=== PATIENT | female | born 1975 | race Caucasian/White ===

== ENCOUNTER → 2016-10-14 | Outpatient (CLI) | payer BC ==
[~2016-10-14] MED LIST: ACET-749 PO; ALPR0.25 PO; CALCTAB5 PO; CYAN3INJ IM; LEVO112T4 PO; PEDICHW50 PO; RIZA10TA18 PO; ZOLP10TA6 PO
--- NOTE | 2016-10-15 12:58 | MAMMOGRAPHY REPORT ---
BILATERAL DIGITAL SCREENING MAMMOGRAM TOMOSYNTHESIS WITH CAD: 10/14/2016 CLINICAL HISTORY: Routine screening. Patient has no complaints. TECHNIQUE: Breast tomosynthesis in addition to standard 2D mammography was performed. Current study was also evaluated with a Computer Aided Detection (CAD) system. COMPARISON: Comparison is made to exam dated: 10/12/2015 mammogram - [facility]. BREAST COMPOSITION: The tissue of both breasts is almost entirely fatty. FINDINGS: There is a focal asymmetry in the upper outer middle one third of the right breast with p ossible associated architectural distortion. Additional spot compression tomosynthesis views and po ssibly ultrasound are recommended. There is a second asymmetry in the anterior subareolar right edy ast, only seen on the CC view, warranting additional spot compression tomosynthesis views and possib ly ultrasound. No other suspicious mass, architectural distortion or cluster of microcalcifications is seen bilater ally. IMPRESSION: ACR BI-RADS CATEGORY 0: INCOMPLETE EVALUATION: NEED ADDITIONAL IMAGING EVALUATION The asymmetries within the right breast need additional imaging evaluation. The patient will be called to schedule an appointment. Approximately 10% of breast cancers are not detected with mammography. A negative mammographic repor t should not delay biopsy if a clinically suggestive mass is present. Nena Bobo M.D. ay/:10/14/2016 16:39:21 Wallpaper Printer Helper: Vicki BRADSHAW(Gaurang)(M), [facility] letter sent: Addl Imaging 0 BI-RADS Code: ACR BI-RADS Category 0: Incomplete Evaluation: Need Additional Imaging Evaluation
== END | disposition home or self-care (01) ==
LOC: C.MAMM 10:09
PROVIDERS: ATTEND Obstetrics & Gynecology
DX: Z12.31 Encounter for screening mammogram for malignant neoplasm of breast (principal); R92.8 Other abnormal and inconclusive findings on diagnostic imaging of breast

== ENCOUNTER → 2016-10-22 | Outpatient (CLI) | payer BC ==
--- NOTE | 2016-10-22 14:11 | MAMMOGRAPHY REPORT ---
UNILATERAL RIGHT DIGITAL DIAGNOSTIC MAMMOGRAM TOMOSYNTHESIS AND TARGETED RIGHT ULTRASOUND: 10/22/2016 CLINICAL HISTORY: Callback from screening mammogram for right breast asymmetries. TECHNIQUE: Breast tomosynthesis in addition to standard 2D mammography was performed. Spot mary lakes[place]ia right CC and MLO 2-D and tomosynthesis images were obtained. COMPARISON: Comparison is made to exams dated: 10/14/2016 mammogram and 10/12/2015 mammogram - [facility]. BREAST COMPOSITION: The tissue of the right breast is almost entirely fatty. FINDINGS: The previously described focal asymmetry in the right upper outer quadrant has the appear ance of normal fibroglandular tissue on the additional views, without a suspicious mass or edi architect ural distortion noted. The asymmetry appears stable to the 2016 exam on the additional views. The other asymmetry seen within the right anterior breast on the cc view is also stable compared to the 2016 exam and has the appearance of normal fibroglandular tissue on the tomosynthesis images. Targeted ultrasound was performed of the right upper outer quadrant in the region of the mammographi c focal asymmetry, which shows sonographically normal tissue without evidence of a mass or other natacha picious sonographic abnormality. IMPRESSION: ACR BI-RADS CATEGORY 2: BENIGN, TARGETED ULTRASOUND ACR BI-RADS CATEGORY 2: BENIGN The right breast asymmetries efface to a baseline appearance on the additional views, without suspic ious sonographic abnormality evident. The asymmetries are benign and compatible with normal fibrogl andular tissue. There is no mammographic or targeted sonographic evidence of malignancy. A 1 year s creening mammogram is recommended. The patient has been verbally notified of the results. Approximately 10% of breast cancers are not detected with mammography. A negative mammographic repor t should not delay biopsy if a clinically suggestive mass is present. Angi De Anda M.D. /:10/22/2016 13:12:41 Egg Separator: Augusta SMALLWOOD)(Adolfo), [facility] letter sent: Normal 1/2 BI-RADS Code: ACR BI-RADS Category 2: Benign Ultrasound BI-RADS: ACR BI-RADS Category 2: Benign
== END | disposition home or self-care (01) ==
LOC: C.MAMM 12:47
PROVIDERS: ATTEND Obstetrics & Gynecology
DX: N64.89 Other specified disorders of breast (principal)

== ENCOUNTER 2021-09-26 22:22 | Inpatient (IN) ==
[2021-09-26] MEDS ORDERED: MoRPHine SULFATE 4 MG/ML 1 ML CARP\\VIAL IV STA (23:17)
[2021-09-26] MEDS ORDERED: ONDANSETRON INJ 2 MG/ML 2 ML VIAL IV STA (23:17)
[2021-09-26] MEDS ORDERED: SODIUM CHLORIDE 0.9% 1000ML 1,000 ML IV STA (23:17)
[2021-09-26 23:30] LABS: Basophils # (auto) 0.02 K/uL (0-0.2); Basophils % (auto) 0.1 %; Eosinophils # (auto) 0.03 K/uL (0-0.5); Eosinophils % (auto) 0.2 %; Hematocrit (blood only) 42.1 % (37-47); Hemoglobin 14.3 g/dL (12.0-16.0); Immature Granulocytes # (auto) 0.07 K/uL (0.00-0.02); Immature Granulocytes % (auto) 0.4 %; Lymphocytes # (auto) 0.99 K/uL (1.2-3.4); Lymphocytes % (auto) 5.5 %; Mean Corpuscular Volume 88.3 fL (80-100); Mean Platelet Volume 10.5 fL (7.4-10.4); Monocytes # (auto) 1.01 K/uL (0.11-0.59); Monocytes % (auto) 5.6 %; Neutrophils # (auto) 15.84 K/uL (1.4-6.5); Neutrophils % (auto) 88.2 %; Platelet Count 235 K/uL (130-400); RDW Coefficient of Variation 13.4 % (11.5-14.5); RDW Standard Deviation 43.7 fL (36.4-46.3); Red Blood Count 4.77 M/uL (4.2-5.4); White Blood Count 17.96 K/uL (4.8-10.8)
[2021-09-26 23:38] LABS: Albumin Globulin Ratio 1.4 (0.9-2); BUN Creatinine Ratio 17.1 (10-20); Bilirubin,Total 0.9 mg/dl (0.2-1.0); Calcium 8.8 mg/dl (8.5-10.1); Creatinine Clr Calc Pharmacy 87.6 ml/min; Est GFR (African American) 108.3 ml/min; Est GFR (Non-African American) 93.4 ml/min; Globulin 2.9 gm/dl (2.5-4.0); Total Protein 6.9 gm/dl (6.0-8.3)
[2021-09-26 23:54] LABS: Pregnancy Test, Serum Negative (Negative)
--- NOTE | 2021-09-26 23:58 | Emergency Department Note ---
History of Present Illness General Chief complaint: Fever Stated complaint: FEVER, HEADACHE, DIARRHEA, LUQ ABDOMINAL PAIN Time Seen by Provider: 09/26/21 23:02 History of Present Illness Maximum Pain Intensity: 8 This 46-year-old female patient presents to the emergency department today for evaluation of fever, headache, diarrhea, and generalized abdominal pain which feels similar nature to small bowel obstruction and diverticulitis she has experienced in the past. Patient states she has been experiencing intermittent pain for about a week and a half. She developed the fever and other symptoms earlier this evening. She states she has had several episodes of diarrhea since arrival in the emergency department. She does have a history of gastric bypass surgery and cholecystectomy. Patient took ibuprofen for her pain without relief. She has not taken any antidiarrheals or antiemetics. She rates her pain 8/10 and describes it as crampy and sharp. Home Medications Medication Instructions Recorded Confirmed Type Rizatriptan Benzoate (Maxalt) 10 mg PO PRN #0 03/08/07 History ALPRAZOLAM (XANAX) 0.25 mg PO HS PRN #0 tab 05/07/14 History Calcium (Caltrate) 600 mg PO BID #0 05/07/14 History Cyanocobalamin (Vitamin B-12 Inj) 1,000 mg IM Q3M #0 05/07/14 History PEDIATRIC MULTIPLE VITAMIN W/ 1 tab PO BID #0 tab 05/07/14 History (FLINTSTONES CHEWABLE) Acetaminophen/Codeine (Tylenol 1 tab PO 1 TIME #0 02/12/16 History W/Codeine #3) LEVOTHYROXINE SODIUM 1 tab PO DAILY #0 02/12/16 History ZOLPIDEM TARTRATE 0.5 tab PO BID PRN #0 02/12/16 History ondansetron 4 mg disintegrating 4 mg PO Q6H PRN #20 tab 01/06/20 Rx tablet Allergies Allergy/AdvReac Type Severity Reaction Status Date / Time sumatriptan Allergy Intermediate BODY PAIN Unverified 02/12/16 12:27 iodine Allergy Unknown Unverified 02/12/16 12:25 Penicillins Allergy Unknown Verified 02/12/16 12:25 shellfish derived Allergy Unknown UNKNOWN Verified 02/12/16 12:25 Sulfa (Sulfonamide Allergy Unknown Unverified 02/12/16 12:25 Antibiotics) Past Med/Surg History Medical History (Updated 09/27/21 @ 05:51 by Kevin Amaro MD) No significant past medical history Surgical History (Updated 01/21/20 @ 00:03 by Suzi Scott) H/O gastric bypass History of cholecystectomy Social History Smoking Status: Never smoker Preferred Language: Indonesian marital status: Current Living Situation: Spouse current occupational status: employed Feels Safe at Home: Yes Review of Systems A total of 10 systems reviewed and were otherwise negative Physical Exam Vital Signs Vital Signs - 24 hr 09/26/21 22:26 09/26/21 22:48 09/26/21 22:50 Temperature 36.6 C Temperature Source Temporal Artery Scan Pulse Rate 151 H 127 H 133 H Pulse Rate [Apical] Respiratory Rate 18 21 20 Respiratory Effort / Characteristics Non-Labored Spontaneous Respiratory Depth Normal Respiratory Pattern Regular Blood Pressure 138/79 Blood Pressure [Left Arm] Blood Pressure Mean 98 Blood Pressure Mean [Left Arm] Blood Pressure Position Sitting Pulse Oximetry 95 Oxygen Delivery Method Room Air Sepsis Recent Fever Within 48 Hours No Sepsis New/Unexplained Change in Mental Status No Sepsis Action Taken by Nursing No Action Required 09/26/21 23:00 09/26/21 23:10 09/26/21 23:20 Temperature Temperature Source Pulse Rate 132 H 132 H 131 H Pulse Rate [Apical] Respiratory Rate 20 19 20 Respiratory Effort / Characteristics Respiratory Depth Respiratory Pattern Blood Pressure 127/86 Blood Pressure [Left Arm] Blood Pressure Mean 99 Blood Pressure Mean [Left Arm] Blood Pressure Position Pulse Oximetry 98 Oxygen Delivery Method Sepsis Recent Fever Within 48 Hours Sepsis New/Unexplained Change in Mental Status Sepsis Action Taken by Nursing 09/26/21 23:31 09/26/21 23:40 09/26/21 23:45 Temperature Temperature Source Pulse Rate 150 H 113 H 112 H Pulse Rate [Apical] Respiratory Rate 22 18 20 Respiratory Effort / Characteristics Respiratory Depth Respiratory Pattern Blood Pressure 124/86 Blood Pressure [Left Arm] Blood Pressure Mean 98 Blood Pressure Mean [Left Arm] Blood Pressure Position Pulse Oximetry 96 Oxygen Delivery Method Sepsis Recent Fever Within 48 Hours Sepsis New/Unexplained Change in Mental Status Sepsis Action Taken by Nursing 09/26/21 23:50 09/27/21 00:53 09/27/21 01:00 Temperature Temperature Source Pulse Rate 117 H 99 H 96 H Pulse Rate [Apical] Respiratory Rate 20 18 17 Respiratory Effort / Characteristics Respiratory Depth Respiratory Pattern Blood Pressure 128/77 Blood Pressure [Left Arm] Blood Pressure Mean 94 Blood Pressure Mean [Left Arm] Blood Pressure Position Pulse Oximetry Oxygen Delivery Method Sepsis Recent Fever Within 48 Hours Sepsis New/Unexplained Change in Mental Status Sepsis Action Taken by Nursing 09/27/21 01:10 09/27/21 01:20 09/27/21 01:30 Temperature Temperature Source Pulse Rate 102 H 98 H 110 H Pulse Rate [Apical] Respiratory Rate 20 20 21 Respiratory Effort / Characteristics Respiratory Depth Respiratory Pattern Blood Pressure Blood Pressure [Left Arm] Blood Pressure Mean Blood Pressure Mean [Left Arm] Blood Pressure Position Pulse Oximetry 98 96 Oxygen Delivery Method Sepsis Recent Fever Within 48 Hours Sepsis New/Unexplained Change in Mental Status Sepsis Action Taken by Nursing 09/27/21 01:40 09/27/21 01:50 09/27/21 02:00 Temperature Temperature Source Pulse Rate 98 H 108 H 104 H Pulse Rate [Apical] Respiratory Rate 16 18 20 Respiratory Effort / Characteristics Respiratory Depth Respiratory Pattern Blood Pressure 107/63 Blood Pressure [Left Arm] Blood Pressure Mean 77 Blood Pressure Mean [Left Arm] Blood Pressure Position Pulse Oximetry 99 Oxygen Delivery Method Sepsis Recent Fever Within 48 Hours Sepsis New/Unexplained Change in Mental Status Sepsis Action Taken by Nursing 09/27/21 02:10 09/27/21 02:39 09/27/21 02:40 Temperature Temperature Source Pulse Rate 114 H 94 H 94 H Pulse Rate [Apical] Respiratory Rate 17 17 21 Respiratory Effort / Characteristics Respiratory Depth Respiratory Pattern Blood Pressure Blood Pressure [Left Arm] Blood Pressure Mean Blood Pressure Mean [Left Arm] Blood Pressure Position Pulse Oximetry Oxygen Delivery Method Sepsis Recent Fever Within 48 Hours Sepsis New/Unexplained Change in Mental Status Sepsis Action Taken by Nursing 09/27/21 02:50 09/27/21 03:18 09/27/21 05:00 Temperature Temperature Source Pulse Rate 97 H Pulse Rate [Apical] 96 H 84 Respiratory Rate 18 18 18 Respiratory Effort / Characteristics Non-Labored Spontaneous Non-Labored Spontaneous Respiratory Depth Normal Normal Respiratory Pattern Blood Pressure Blood Pressure [Left Arm] 113/98 120/95 Blood Pressure Mean Blood Pressure Mean [Left Arm] 103 103 Blood Pressure Position Pulse Oximetry 100 97 Oxygen Delivery Method Room Air Room Air Sepsis Recent Fever Within 48 Hours Sepsis New/Unexplained Change in Mental Status Sepsis Action Taken by Nursing VITALS: Vitals are noted on the nurse's note and reviewed by myself. Vital signs stable. GENERAL: This is a 46-year-old white female, in no acute distress, nondiaphoretic, well-developed well-nourished. SKIN: The skin was without rashes, erythema, edema, or bruising. There is no tenting of the skin. Capillary refill less than 2 seconds. HEAD: Normocephalic atraumatic. EYES: Conjunctivae without injection, sclerae without icterus. NECK: Supple without nuchal rigidity. No lymphadenopathy. No JVD. HEART: Regular rate and rhythm without murmurs gallops or rubs. LUNGS: Clear to auscultation bilaterally without wheezes, rales or rhonchi. No retractions or accessory muscle use. ABDOMEN: Positive bowel sounds x 4. Diffuse tenderness throughout the abdomen. Abdomen was otherwise soft, without masses or organomegaly. Flynn sign negative. No guarding or rebound tenderness. No CVA tenderness bilaterally. MUSCULOSKELETAL: No muscle atrophy, erythema, or edema noted. Full range of motion without joint tenderness in all extremities. No tenderness to palpation. Normal gait. Strength 5/5 throughout. NEURO: Patient was alert and oriented to person place and time. No focal neurological deficits. Course Course The patient was seen and evaluated as above. An order was placed for continuous cardiac monitoring. The monitor shows a sinus tachycardia rhythm at a rate of 120 bpm. IV access obtained, labs drawn. Patient hydrated IV fluids and medicated with morphine and Zofran. Imaging performed and reviewed by myself and radiologist as noted. Labs reviewed by myself. Patient medicated with additional dose of morphine. I discussed the findings with the patient at bedside. Patient continues to complain of pain. She is requesting Gas-X. I recommended admission due to the patient's complaints of pain, the patient was hesitant, noting she would like to see if the Gas-X helps first. She will provide a stool sample when able. Patient was medicated with p.o. simethicone. Patient is now requesting Tylenol. This was provided. Patient is now complaining of hives developing behind her ears and on her left eyelid. Medicated with p.o. Benadryl. She is continuing to complain of severe abdominal pain. She was agreeable to admission at this time. I discussed the case with Dr. Amaro, [facility] hospitalist physician. He did agree to see and evaluate the patient for admission. Please see hospitalist dictation regarding ongoing management and care of this patient. Administered Medications Lactated Ringer's (Lr) 1,000 mls @ 80 mls/hr IV .[id number] STA Stop: 09/27/21 17:02 Last Admin: 09/27/21 05:23 Dose: 80 mls/hr Documented by: [id number] Discontinued Medications Diphenhydramine HCl (Diphenhydramine 50 Mg/Ml Vial) 50 mg IV NOW STA Stop: 09/27/21 03:48 Last Admin: 09/27/21 03:53 Dose: 50 mg Documented by: [id number] Sodium Chloride (Nss 1000ml) 1,000 mls @ 999 mls/hr IV .[id number] STA Stop: 09/27/21 00:17 Last Infusion: 09/27/21 00:49 Dose: 0 mls/hr Documented by: [id number] Admin: 09/26/21 23:38 Dose: 999 mls/hr Documented by: [id number] Acetaminophen (Ofirmev) 1,000 mg in 100 mls @ 400 mls/hr IV NOW STA Stop: 09/27/21 03:10 Last Infusion: 09/27/21 03:38 Dose: 0 mls/hr Documented by: [id number] Admin: 09/27/21 03:16 Dose: 400 mls/hr Documented by: [id number] Morphine Sulfate (Morphine Sulfate 4 Mg/Ml 1 Ml Carp\Vial) 4 mg IV NOW STA Stop: 09/26/21 23:18 Last Admin: 09/26/21 23:37 Dose: 4 mg Documented by: [id number] Morphine Sulfate (Morphine Sulfate 4 Mg/Ml 1 Ml Carp\Vial) 4 mg IV NOW STA Stop: 09/27/21 00:51 Last Admin: 09/27/21 01:00 Dose: 4 mg Documented by: [id number] Ondansetron HCl (Ondansetron Inj 2 Mg/Ml 2 Ml Vial) 4 mg IV NOW STA Stop: 09/26/21 23:18 Last Admin: 09/26/21 23:37 Dose: 4 mg Documented by: [id number] Simethicone (Simethicone 80 Mg Chew) 80 mg PO NOW STA Stop: 09/27/21 01:59 Last Admin: 09/27/21 02:35 Dose: 80 mg Documented by: [id number] Medical Decision Making Differential Diagnosis Etiologies such as appendicitis, diverticulitis, obstruction, inflammatory bowel disease, renal colic, PUD, biliary pathology, pancreatitis, mesenteric ischemia, aortic pathology, infections, genitourinary, UTI, perforated viscus, as well as others were entertained. Medical Records Attestation: I reviewed the patient's medical records. Home Medications Current Medication List: was personally reviewed by me Laboratory Data Attestation: I reviewed the patient's lab results. Leukocytosis of 17,000. No anemia or thrombocytopenia. Renal, hepatic function and electrolytes without significant abnormality, however the patient was noted to be hypokalemic with a potassium of 3.0. hCG negative. Magnesium 1.6. Procalcitonin negative. Lipase 11. Lactic acid 0.6. TSH 3.243. Influenza, COVID-19, RSV testing negative. Stool PCR was positive for Campylobacter Result diagrams: 09/26/21 22:52 09/26/21 22:52 Lab Results 09/26/21 09/26/21 09/26/21 Range/Units 22:52 22:52 22:52 WBC 17.96 H (4.8-10.8) K/uL RBC 4.77 (4.2-5.4) M/uL Hgb 14.3 (12.0-16.0) g/dL Hct 42.1 (37-47) % MCV 88.3 (80-100) fL MCH 30.0 (25-34) pg MCHC 34.0 (32-36) g/dL RDW Std Deviation 43.7 (36.4-46.3) fL RDW Coeff of Frank 13.4 (11.5-14.5) % Plt Count 235 (130-400) K/uL MPV 10.5 H (7.4-10.4) fL Immature Gran % (Auto) 0.4 % Neut % (Auto) 88.2 % Lymph % (Auto) 5.5 % [place] % (Auto) 5.6 % Eos % (Auto) 0.2 % Baso % (Auto) 0.1 % Neut # (Auto) 15.84 H (1.4-6.5) K/uL Lymph # (Auto) 0.99 L (1.2-3.4) K/uL [place] # (Auto) 1.01 H (0.11-0.59) K/uL Eos # (Auto) 0.03 (0-0.5) K/uL Baso # (Auto) 0.02 (0-0.2) K/uL Immature Gran # (Auto) 0.07 H (0.00-0.02) K/uL Sodium 137 (136-145) mmol/L Potassium 3.0 L (3.5-5.1) mmol/L Chloride 105 (98-107) mmol/L Carbon Dioxide 23 (21-32) mmol/L Anion Gap 9 (3-11) BUN 13 (6-23) mg/dl Creatinine 0.76 (0.6-1.2) mg/dl Est Cr Clr Drug Dosing 87.6 ml/min Est GFR ( Amer) 108.3 ml/min Est GFR (Non-Af Amer) 93.4 ml/min BUN/Creatinine Ratio 17.1 (10-20) Glucose 107 H (70-99(Fasting)) mg/dl Lactate (0.4-2.0) mmol/L Calcium 8.8 (8.5-10.1) mg/dl Magnesium (1.7-2.4) mg/dl Total Bilirubin 0.9 (0.2-1.0) mg/dl AST 15 (13-39) U/L ALT 12 (7-52) U/L Alkaline Phosphatase 122 H (34-104) U/L Total Protein 6.9 (6.0-8.3) gm/dl Albumin 4.0 (3.4-5.0) gm/dl Globulin 2.9 (2.5-4.0) gm/dl Albumin/Globulin Ratio 1.4 (0.9-2) Lipase 11 (11-82) U/L Procalcitonin (0-0.5) ng/ml TSH (0.300-4.500) uIu/ml HCG, Qual Negative (Negative) Urine Color Urine Appearance (Clear) Urine pH (4.5-7.5) Ur Specific [place] (1.000-1.030) Urine Protein (Negative) Urine Glucose (UA) (Negative) Urine Ketones (Negative) Urine Blood (Negative) Urine Nitrite (Negative) Urine Bilirubin (Negative) Urine Urobilinogen (Negative) Ur Leukocyte Esterase (Negative) Urine WBC (Auto) (0-5) /hpf Urine RBC (Auto) (0-4) /hpf U Hyaline Cast (Auto) (0-5) /lpf U Epithel Cells (Auto) (0-5) /lpf Urine Bacteria (Auto) (Negative) Stl C. cayetanensis PCR (NotDetected) Stool Rotavirus A PCR (NotDetected) Stl Adenov F 40/41 PCR (NotDetected) Stool Astrovirus (PCR) (NotDetected) Stool Campylobacter PCR (NotDetected) Stl C. diff Tox A/B PCR (NotDetected) Stool Cryptosporidium PCR (NotDetected) Stl E.coli Shiga Tox PCR (NotDetected) Stl Enterotoxigenic E PCR (NotDetected) Stool EPEC (PCR) (NotDetected) Stool EAEC (PCR) (NotDetected) Stl E. histolytica PCR (NotDetected) Stool Giardia Lamblia PCR (NotDetected) Stool Salmonella PCR (NotDetected) Stool Sapovirus (PCR) (NotDetected) Stl P. shigelloides PCR (NotDetected) Stl Shigella/EIEC PCR (NotDetected) St Y.enterocolitica PCR (NotDetected) Stool Vibrio (PCR) (NotDetected) Stl Vibrio cholerae PCR (NotDetected) Stl Norovirus GI/GII PCR (NotDetected) SARS-CoV-2 (PCR) (Negative) Influenza Type A (PCR) (Neg) Influenza Type B (PCR) (Neg) RSV (RT-PCR) (Neg) 09/26/21 09/26/21 09/26/21 Range/Units 22:52 22:52 22:52 WBC (4.8-10.8) K/uL RBC (4.2-5.4) M/uL Hgb (12.0-16.0) g/dL Hct (37-47) % MCV (80-100) fL MCH (25-34) pg MCHC (32-36) g/dL RDW Std Deviation (36.4-46.3) fL RDW Coeff of Frank (11.5-14.5) % Plt Count (130-400) K/uL MPV (7.4-10.4) fL Immature Gran % (Auto) % Neut % (Auto) % Lymph % (Auto) % [place] % (Auto) % Eos % (Auto) % Baso % (Auto) % Neut # (Auto) (1.4-6.5) K/uL Lymph # (Auto) (1.2-3.4) K/uL [place] # (Auto) (0.11-0.59) K/uL Eos # (Auto) (0-0.5) K/uL Baso # (Auto) (0-0.2) K/uL Immature Gran # (Auto) (0.00-0.02) K/uL Sodium (136-145) mmol/L Potassium (3.5-5.1) mmol/L Chloride (98-107) mmol/L Carbon Dioxide (21-32) mmol/L Anion Gap (3-11) BUN (6-23) mg/dl Creatinine (0.6-1.2) mg/dl Est Cr Clr Drug Dosing ml/min Est GFR ( Amer) ml/min Est GFR (Non-Af Amer) ml/min BUN/Creatinine Ratio (10-20) Glucose (70-99(Fasting)) mg/dl Lactate (0.4-2.0) mmol/L Calcium (8.5-10.1) mg/dl Magnesium 1.6 L (1.7-2.4) mg/dl Total Bilirubin (0.2-1.0) mg/dl AST (13-39) U/L ALT (7-52) U/L Alkaline Phosphatase (34-104) U/L Total Protein (6.0-8.3) gm/dl Albumin (3.4-5.0) gm/dl Globulin (2.5-4.0) gm/dl Albumin/Globulin Ratio (0.9-2) Lipase (11-82) U/L Procalcitonin < 0.05 (0-0.5) ng/ml TSH (0.300-4.500) uIu/ml HCG, Qual (Negative) Urine Color Yellow Urine Appearance Clear (Clear) Urine pH 7.5 (4.5-7.5) Ur Specific [place] 1.011 (1.000-1.030) Urine Protein Negative (Negative) Urine Glucose (UA) Negative (Negative) Urine Ketones Trace H (Negative) Urine Blood 1+ H (Negative) Urine Nitrite Negative (Negative) Urine Bilirubin Negative (Negative) Urine Urobilinogen Negative (Negative) Ur Leukocyte Esterase Negative (Negative) Urine WBC (Auto) 1-5 (0-5) /hpf Urine RBC (Auto) 0-4 (0-4) /hpf U Hyaline Cast (Auto) 0 (0-5) /lpf U Epithel Cells (Auto) 0-5 (0-5) /lpf Urine Bacteria (Auto) Negative (Negative) Stl C. cayetanensis PCR (NotDetected) Stool Rotavirus A PCR (NotDetected) Stl Adenov F 40/41 PCR (NotDetected) Stool Astrovirus (PCR) (NotDetected) Stool Campylobacter PCR (NotDetected) Stl C. diff Tox A/B PCR (NotDetected) Stool Cryptosporidium PCR (NotDetected) Stl E.coli Shiga Tox PCR (NotDetected) Stl Enterotoxigenic E PCR (NotDetected) Stool EPEC (PCR) (NotDetected) Stool EAEC (PCR) (NotDetected) Stl E. histolytica PCR (NotDetected) Stool Giardia Lamblia PCR (NotDetected) Stool Salmonella PCR (NotDetected) Stool Sapovirus (PCR) (NotDetected) Stl P. shigelloides PCR (NotDetected) Stl Shigella/EIEC PCR (NotDetected) St Y.enterocolitica PCR (NotDetected) Stool Vibrio (PCR) (NotDetected) Stl Vibrio cholerae PCR (NotDetected) Stl Norovirus GI/GII PCR (NotDetected) SARS-CoV-2 (PCR) (Negative) Influenza Type A (PCR) (Neg) Influenza Type B (PCR) (Neg) RSV (RT-PCR) (Neg) 09/26/21 09/26/21 09/27/21 Range/Units 22:52 23:36 03:13 WBC (4.8-10.8) K/uL RBC (4.2-5.4) M/uL Hgb (12.0-16.0) g/dL Hct (37-47) % MCV (80-100) fL MCH (25-34) pg MCHC (32-36) g/dL RDW Std Deviation (36.4-46.3) fL RDW Coeff of Frank (11.5-14.5) % Plt Count (130-400) K/uL MPV (7.4-10.4) fL Immature Gran % (Auto) % Neut % (Auto) % Lymph % (Auto) % [place] % (Auto) % Eos % (Auto) % Baso % (Auto) % Neut # (Auto) (1.4-6.5) K/uL Lymph # (Auto) (1.2-3.4) K/uL [place] # (Auto) (0.11-0.59) K/uL Eos # (Auto) (0-0.5) K/uL Baso # (Auto) (0-0.2) K/uL Immature Gran # (Auto) (0.00-0.02) K/uL Sodium (136-145) mmol/L Potassium (3.5-5.1) mmol/L Chloride (98-107) mmol/L Carbon Dioxide (21-32) mmol/L Anion Gap (3-11) BUN (6-23) mg/dl Creatinine (0.6-1.2) mg/dl Est Cr Clr Drug Dosing ml/min Est GFR ( Amer) ml/min Est GFR (Non-Af Amer) ml/min BUN/Creatinine Ratio (10-20) Glucose (70-99(Fasting)) mg/dl Lactate 0.6 (0.4-2.0) mmol/L Calcium (8.5-10.1) mg/dl Magnesium (1.7-2.4) mg/dl Total Bilirubin (0.2-1.0) mg/dl AST (13-39) U/L ALT (7-52) U/L Alkaline Phosphatase (34-104) U/L Total Protein (6.0-8.3) gm/dl Albumin (3.4-5.0) gm/dl Globulin (2.5-4.0) gm/dl Albumin/Globulin Ratio (0.9-2) Lipase (11-82) U/L Procalcitonin (0-0.5) ng/ml TSH 3.243 (0.300-4.500) uIu/ml HCG, Qual (Negative) Urine Color Urine Appearance (Clear) Urine pH (4.5-7.5) Ur Specific [place] (1.000-1.030) Urine Protein (Negative) Urine Glucose (UA) (Negative) Urine Ketones (Negative) Urine Blood (Negative) Urine Nitrite (Negative) Urine Bilirubin (Negative) Urine Urobilinogen (Negative) Ur Leukocyte Esterase (Negative) Urine WBC (Auto) (0-5) /hpf Urine RBC (Auto) (0-4) /hpf U Hyaline Cast (Auto) (0-5) /lpf U Epithel Cells (Auto) (0-5) /lpf Urine Bacteria (Auto) (Negative) Stl C. cayetanensis PCR Not Detected (NotDetected) Stool Rotavirus A PCR Not Detected (NotDetected) Stl Adenov F 40/41 PCR Not Detected (NotDetected) Stool Astrovirus (PCR) Not Detected (NotDetected) Stool Campylobacter PCR DETECTED A* (NotDetected) Stl C. diff Tox A/B PCR Not Detected (NotDetected) Stool Cryptosporidium PCR Not Detected (NotDetected) Stl E.coli Shiga Tox PCR Not Detected (NotDetected) Stl Enterotoxigenic E PCR Not Detected (NotDetected) Stool EPEC (PCR) Not Detected (NotDetected) Stool EAEC (PCR) Not Detected (NotDetected) Stl E. histolytica PCR Not Detected (NotDetected) Stool Giardia Lamblia PCR Not Detected (NotDetected) Stool Salmonella PCR Not Detected (NotDetected) Stool Sapovirus (PCR) Not Detected (NotDetected) Stl P. shigelloides PCR Not Detected (NotDetected) Stl Shigella/EIEC PCR Not Detected (NotDetected) St Y.enterocolitica PCR Not Detected (NotDetected) Stool Vibrio (PCR) Not Detected (NotDetected) Stl Vibrio cholerae PCR Not Detected (NotDetected) Stl Norovirus GI/GII PCR Not Detected (NotDetected) SARS-CoV-2 (PCR) (Negative) Influenza Type A (PCR) (Neg) Influenza Type B (PCR) (Neg) RSV (RT-PCR) (Neg) 09/27/21 Range/Units 03:55 WBC (4.8-10.8) K/uL RBC (4.2-5.4) M/uL Hgb (12.0-16.0) g/dL Hct (37-47) % MCV (80-100) fL MCH (25-34) pg MCHC (32-36) g/dL RDW Std Deviation (36.4-46.3) fL RDW Coeff of Frank (11.5-14.5) % Plt Count (130-400) K/uL MPV (7.4-10.4) fL Immature Gran % (Auto) % Neut % (Auto) % Lymph % (Auto) % [place] % (Auto) % Eos % (Auto) % Baso % (Auto) % Neut # (Auto) (1.4-6.5) K/uL Lymph # (Auto) (1.2-3.4) K/uL [place] # (Auto) (0.11-0.59) K/uL Eos # (Auto) (0-0.5) K/uL Baso # (Auto) (0-0.2) K/uL Immature Gran # (Auto) (0.00-0.02) K/uL Sodium (136-145) mmol/L Potassium (3.5-5.1) mmol/L Chloride (98-107) mmol/L Carbon Dioxide (21-32) mmol/L Anion Gap (3-11) BUN (6-23) mg/dl Creatinine (0.6-1.2) mg/dl Est Cr Clr Drug Dosing ml/min Est GFR ( Amer) ml/min Est GFR (Non-Af Amer) ml/min BUN/Creatinine Ratio (10-20) Glucose (70-99(Fasting)) mg/dl Lactate (0.4-2.0) mmol/L Calcium (8.5-10.1) mg/dl Magnesium (1.7-2.4) mg/dl Total Bilirubin (0.2-1.0) mg/dl AST (13-39) U/L ALT (7-52) U/L Alkaline Phosphatase (34-104) U/L Total Protein (6.0-8.3) gm/dl Albumin (3.4-5.0) gm/dl Globulin (2.5-4.0) gm/dl Albumin/Globulin Ratio (0.9-2) Lipase (11-82) U/L Procalcitonin (0-0.5) ng/ml TSH (0.300-4.500) uIu/ml HCG, Qual (Negative) Urine Color Urine Appearance (Clear) Urine pH (4.5-7.5) Ur Specific [place] (1.000-1.030) Urine Protein (Negative) Urine Glucose (UA) (Negative) Urine Ketones (Negative) Urine Blood (Negative) Urine Nitrite (Negative) Urine Bilirubin (Negative) Urine Urobilinogen (Negative) Ur Leukocyte Esterase (Negative) Urine WBC (Auto) (0-5) /hpf Urine RBC (Auto) (0-4) /hpf U Hyaline Cast (Auto) (0-5) /lpf U Epithel Cells (Auto) (0-5) /lpf Urine Bacteria (Auto) (Negative) Stl C. cayetanensis PCR (NotDetected) Stool Rotavirus A PCR (NotDetected) Stl Adenov F 40/41 PCR (NotDetected) Stool Astrovirus (PCR) (NotDetected) Stool Campylobacter PCR (NotDetected) Stl C. diff Tox A/B PCR (NotDetected) Stool Cryptosporidium PCR (NotDetected) Stl E.coli Shiga Tox PCR (NotDetected) Stl Enterotoxigenic E PCR (NotDetected) Stool EPEC (PCR) (NotDetected) Stool EAEC (PCR) (NotDetected) Stl E. histolytica PCR (NotDetected) Stool Giardia Lamblia PCR (NotDetected) Stool Salmonella PCR (NotDetected) Stool Sapovirus (PCR) (NotDetected) Stl P. shigelloides PCR (NotDetected) Stl Shigella/EIEC PCR (NotDetected) St Y.enterocolitica PCR (NotDetected) Stool Vibrio (PCR) (NotDetected) Stl Vibrio cholerae PCR (NotDetected) Stl Norovirus GI/GII PCR (NotDetected) SARS-CoV-2 (PCR) NEGATIVE (Negative) Influenza Type A (PCR) Negative (Neg) Influenza Type B (PCR) Negative (Neg) RSV (RT-PCR) Negative (Neg) Imaging Data Radiologist's Impression: CT ABDOMEN & PELVIS Without Contrast: Comparison: 01/06/2020. Lung bases are clear. Normal cardiac size. Normal liver. Status post cholecystectomy otherwise unremarkable biliary system. Normal spleen, bilateral adrenal glands and bilat eral kidneys. Normal pancreas. Postoperative changes with sutures along the stomach. Nonspecific small bowel. Diverticulosis throughout the colon with no signs of diverticulitis. Normal appendix. Fluid within the right colon with mild distention of the distal small bowel loops and fluid within the lumen, a combination of findings suggestive of malabsorption versus enteritis. Anteverted uterus with IUD in place. Normal urinary bladder. No free fluid. Mild degenerative disease of the spine. Normal aorta. Mild fullness of the mesenteric lymph nodes most likelyconsistent with nonspecific inflammatory response. Radiologist: Caroline Cannon MD Blood Pressure Blood Pressure Findings: Normal blood pressure MDM Narrative This 46-year-old female patient presents to the emergency department today for concerns regarding abdominal pain and diarrhea. Patient reports history of small bowel obstruction as well as diverticulitis, noting both of them presented similarly. The patient reports subjective fever. She was very tachycardic on initial evaluation. This did seem to improve with IV hydration and pain control. Patient was having difficulty with pain control throughout her stay. She received multiple rounds of morphine, simethicone and Tylenol at her request. She received antiemetics without resolution of her symptoms. CT imaging performed and consistent with an enteritis. Stool culture was positive for Campylobacter. This does fit the clinical picture. Given the patient's complaints of significant ongoing pain and her concerns that she will not be able to manage her symptoms at home, she would be admitted to the [facility]. Of note, the patient did develop some hives on her left eyelid and behind both ears. The patient notes that this happens sometimes with viral infections. She was medicated with Benadryl and the hives did seem to improve. Please seek hospitalist dictation regarding ongoing management care of this patient. The chart was completed utilizing [employer] voice recognition software. Grammatical errors, random word insertions, pronoun errors, and incomplete sentences are an occasional consequence of this system due to software limitations, ambient noise, and hardware issues. Any formal questions or concerns about the content, text, or information contained within the body of this dictation should be directly addressed to the provider for clarification. Impression & Plan Left sided abdominal pain, H/O gastric bypass, Campylobacter diarrhea Discharge Plan Visit Data Chief Complaint: Fever Stated Complaint: FEVER, HEADACHE, DIARRHEA, LUQ ABDOMINAL PAIN ED Provider: Yousif Noland ED Midlevel Provider: Isa Albert Discharge Problem: Left sided abdominal pain, H/O gastric bypass, Campylobacter diarrhea Patient Disposition: Admitted As Inpatient Forms Stand Alone Forms: [facility] [place] Prescriptions Prescriptions: No Action Rizatriptan Benzoate (Maxalt) 10 MG tablet 10 mg PO PRN Qty: 0 RF: 0 ALPRAZOLAM (XANAX) 0.25 MG tablet 0.25 mg PO HS PRN (Reason: Sleep) Qty: 0 RF: 0 PEDIATRIC MULTIPLE VITAMIN W/ (FLINTSTONES CHEWABLE) 1 CHW CHW 1 tab PO BID Qty: 0 RF: 0 Calcium (Caltrate) 600 MG tablet 600 mg PO BID Qty: 0 RF: 0 Cyanocobalamin (Vitamin B-12 Inj) INJECTION 1,000 mg IM Q3M Qty: 0 RF: 0 LEVOTHYROXINE SODIUM 112 MCG tablet 1 tab PO DAILY Qty: 0 RF: 0 ZOLPIDEM TARTRATE 10 MG tablet 0.5 tab PO BID PRN (Reason: Sleep) Qty: 0 RF: 0 Acetaminophen/Codeine (Tylenol W/Codeine #3) 300 MG/30 MG tablet 1 tab PO 1 TIME Qty: 0 RF: 0 ondansetron 4 mg tablet,disintegrating 4 mg PO Q6H PRN (Reason: nausea and vomiting) Qty: 20 RF: 0 Referrals Referrals: Leopoldo Osorio DO [Primary Care Provider] -
[2021-09-26 23:59] LABS: Appearance Urine Clear (Clear); Bacteria Urine Automated Negative (Negative); Bilirubin Urine Negative (Negative); Blood Urine 1+ (Negative); Cast Urine Automated 0 /lpf (0-5); Color Urine Yellow; Epithelial Cell Urine Auto 0-5 /lpf (0-5); Glucose Urine UA Negative (Negative); Ketones Urine Trace (Negative); Leukocyte Esterase Urine Negative (Negative); Nitrite Urine Negative (Negative); Protein Urine Negative (Negative); RBC Urine Automated 0-4 /hpf (0-4); Specific Gravity Urine 1.011 (1.000-1.030); Urobilinogen Urine Negative (Negative); pH Urine 7.5 (4.5-7.5)
[2021-09-27] MEDS ORDERED: MoRPHine SULFATE 4 MG/ML 1 ML CARP\\VIAL IV STA (00:50)
[2021-09-27] MEDS ORDERED: SIMETHICONE 80 MG CHEW PO STA (01:58)
[2021-09-27] MEDS ORDERED: ACETAMINOPHEN 1,000 MG/100 ML VIAL IV STA (02:56)
[2021-09-27] MEDS ORDERED: diphenhydrAMINE 50 MG/ML VIAL IV STA (03:47)
--- NOTE | 2021-09-27 04:16 | History & Physical Report ---
Date of Service September 27, 2021 Assessment & Plan (1) Campylobacter enteritis: Plan: Patient nontoxic for now Hypersensitivity reaction, unclear drug precipitant for now, patient significantly improved after Benadryl administration at the ER hypertension, stable, patient not on maintenance medications hypothyroidism, euthyroid as of today's TSH Hypokalemia secondary to illness fibromyalgia, at baseline hx gastric bypass anxiety/PTSD/mood disorder, stable OBS GMF Conservative management for patient's Campylobacter diarrheal illness which is nonsevere for now. Consider antibiotic Rx with azithromycin with severe illness (symptoms over 1 week, bloody diarrhea, etc.) Replace electrolytes Loratadine 1 dose now, Benadryl as needed allergic reaction DVT prophylaxis per Lovenox subcu Full code Text document was generated using [employer] voice recognition software. It may contain grammatical or spelling errors. Kindly contact undersigned for clarification of any documentation item in question. History of Present Illness Chief Complaint: Left-sided abdominal pain, diarrhea Primary Care Provider: Leopoldo Osroio DO History obtained from patient and records. Medical history significant fo for hypertension, hypothyroidism, fibromyalgia, hypothyroidism, history gastric bypass, anxiety/PTSD/mood disorder. Last confinement April 2014 for SBO resolved with conservative management. 6 days history of achy left-sided abdominal pain associated with watery loose stools, fever, chills, nausea/vomiting symptoms. Patient not sure about sick contacts because she works at the local [employer] Patient also has consumed food from fast food restaurants. Antibiotic intake for sinusitis about 5 months ago. Patient denies chest pain, SOB. Achy headache symptoms from being sick. NSS, morphine, Zofran, simethicone, and IV Tylenol administered at the ER. At some point during stay at the ER, patient experienced a funny sensation over her face followed by left eyelid swelling and a possible rash behind her right ear. Patient denies chest pain, SOB. Symptoms improved after IV Benadryl administration at the ER. Medical History as above Colonoscopy 2019 showed sigmoid diverticulosis. Surgical History : Gastric bypass, dental surgery, liver biopsy, laparoscopic cholecystectomy, ankle surgery, section Family History : DM, heart disease, thyroid cancer Personal/Social history : Non-smoker, no EtOH intake, retired mental health worker Allergies Allergy/AdvReac Type Severity Reaction Status Date / Time sumatriptan Allergy Intermediate BODY PAIN Unverified 02/12/16 12:27 iodine Allergy Unknown Unverified 02/12/16 12:25 Penicillins Allergy Unknown Verified 02/12/16 12:25 shellfish derived Allergy Unknown UNKNOWN Verified 02/12/16 12:25 Sulfa (Sulfonamide Allergy Unknown Unverified 02/12/16 12:25 Antibiotics) Home Medications Medication Instructions Recorded Confirmed Type Rizatriptan Benzoate (Maxalt) 10 mg PO PRN #0 03/08/07 History ALPRAZOLAM (XANAX) 0.25 mg PO HS PRN #0 tab 05/07/14 History Calcium (Caltrate) 600 mg PO BID #0 05/07/14 History Cyanocobalamin (Vitamin B-12 Inj) 1,000 mg IM Q3M #0 05/07/14 History PEDIATRIC MULTIPLE VITAMIN W/ 1 tab PO BID #0 tab 05/07/14 History (FLINTSTONES CHEWABLE) Acetaminophen/Codeine (Tylenol 1 tab PO 1 TIME #0 02/12/16 History W/Codeine #3) LEVOTHYROXINE SODIUM 1 tab PO DAILY #0 02/12/16 History ZOLPIDEM TARTRATE 0.5 tab PO BID PRN #0 02/12/16 History ondansetron 4 mg disintegrating 4 mg PO Q6H PRN #20 tab 01/06/20 Rx tablet Past Med/Surg History Medical History (Updated 09/27/21 @ 05:51 by Kevin Amaro MD) No significant past medical history Surgical History (Updated 01/21/20 @ 00:03 by Suzi Scott) H/O gastric bypass History of cholecystectomy Social History Smoking Status: Never smoker Preferred Language: Beninese marital status: Current Living Situation: Spouse current occupational status: employed Feels Safe at Home: Yes Review of Systems Review of Systems: As per HPI, all other systems reviewed and negative Physical Exam Physical Exam: GENERAL: Slightly uncomfortable, pleasant, obese, no respiratory distress SKIN: Normal color, warm HEENT: [place] palpebral conjunctivae, minimal left periorbital swelling, dry buccal mucosa NECK : Supple, short neck, no tenderness CHEST : CTA, no tenderness HEART : RRR, no obvious murmurs ABDOMEN: Some distention, left-sided abdominal tenderness EXTREMITIES : No LE swelling/tenderness, no other conspicuous deformities noted NEUROLOGIC : Coherent, no facial asymmetry, no other gross focality Results & Data Results & Data ([facility]) Vital Signs (Past 12 Hours) Vital Signs Temp Pulse Pulse Resp BP BP Pulse Ox 09/27/21 03:18 96 H 18 113/98 100 09/27/21 02:50 97 H 18 09/27/21 02:40 94 H 21 09/27/21 02:39 94 H 17 09/27/21 02:10 114 H 17 09/27/21 02:00 104 H 20 107/63 99 09/27/21 01:50 108 H 18 09/27/21 01:40 98 H 16 09/27/21 01:30 110 H 21 96 09/27/21 01:20 98 H 20 09/27/21 01:10 102 H 20 98 09/27/21 01:00 96 H 17 128/77 09/27/21 00:53 99 H 18 09/26/21 23:50 117 H 20 09/26/21 23:45 112 H 20 124/86 96 09/26/21 23:40 113 H 18 09/26/21 23:31 150 H 22 09/26/21 23:20 131 H 20 98 09/26/21 23:10 132 H 19 09/26/21 23:00 132 H 20 127/86 09/26/21 22:50 133 H 20 09/26/21 22:48 127 H 21 09/26/21 22:26 36.6 C 151 H 18 138/79 95 Laboratory Results Laboratory Results WBC 17.96 K/uL (4.8-10.8) H 09/26/21 22:52 RBC 4.77 M/uL (4.2-5.4) 09/26/21 22:52 Hgb 14.3 g/dL (12.0-16.0) 09/26/21 22:52 Hct 42.1 % (37-47) 09/26/21 22:52 MCV 88.3 fL (80-100) 09/26/21 22:52 MCH 30.0 pg (25-34) 09/26/21 22:52 MCHC 34.0 g/dL (32-36) 09/26/21 22:52 RDW Std Deviation 43.7 fL (36.4-46.3) 09/26/21 22:52 RDW Coeff of Frank 13.4 % (11.5-14.5) 09/26/21 22:52 Plt Count 235 K/uL (130-400) 09/26/21 22:52 MPV 10.5 fL (7.4-10.4) H 09/26/21 22:52 Immature Gran % (Auto) 0.4 % 09/26/21 22:52 Neut % (Auto) 88.2 % 09/26/21 22:52 Lymph % (Auto) 5.5 % 09/26/21 22:52 [place] % (Auto) 5.6 % 09/26/21 22:52 Eos % (Auto) 0.2 % 09/26/21 22:52 Baso % (Auto) 0.1 % 09/26/21 22:52 Neut # (Auto) 15.84 K/uL (1.4-6.5) H 09/26/21 22:52 Lymph # (Auto) 0.99 K/uL (1.2-3.4) L 09/26/21 22:52 Republic # (Auto) 1.01 K/uL (0.11-0.59) H 09/26/21 22:52 Eos # (Auto) 0.03 K/uL (0-0.5) 09/26/21 22:52 Baso # (Auto) 0.02 K/uL (0-0.2) 09/26/21 22:52 Immature Gran # (Auto) 0.07 K/uL (0.00-0.02) H 09/26/21 22:52 Sodium 137 mmol/L (136-145) 09/26/21 22:52 Potassium 3.0 mmol/L (3.5-5.1) L 09/26/21 22:52 Chloride 105 mmol/L (98-107) 09/26/21 22:52 Carbon Dioxide 23 mmol/L (21-32) 09/26/21 22:52 Anion Gap 9 (3-11) 09/26/21 22:52 BUN 13 mg/dl (6-23) 09/26/21 22:52 Creatinine 0.76 mg/dl (0.6-1.2) 09/26/21 22:52 Est Cr Clr Drug Dosing 87.6 ml/min 09/26/21 22:52 Est GFR ( Amer) 108.3 ml/min 09/26/21 22:52 Est GFR (Non-Af Amer) 93.4 ml/min 09/26/21 22:52 BUN/Creatinine Ratio 17.1 (10-20) 09/26/21 22:52 Glucose 107 mg/dl (70-99(Fasting)) H 09/26/21 22:52 Lactate 0.6 mmol/L (0.4-2.0) 09/26/21 23:36 Calcium 8.8 mg/dl (8.5-10.1) 09/26/21 22:52 Total Bilirubin 0.9 mg/dl (0.2-1.0) 09/26/21 22:52 AST 15 U/L (13-39) 09/26/21 22:52 ALT 12 U/L (7-52) 09/26/21 22:52 Alkaline Phosphatase 122 U/L (34-104) H 09/26/21 22:52 Total Protein 6.9 gm/dl (6.0-8.3) 09/26/21 22:52 Albumin 4.0 gm/dl (3.4-5.0) 09/26/21 22:52 Globulin 2.9 gm/dl (2.5-4.0) 09/26/21 22:52 Albumin/Globulin Ratio 1.4 (0.9-2) 09/26/21 22:52 Lipase 11 U/L (11-82) 09/26/21 22:52 HCG, Qual Negative (Negative) 09/26/21 22:52 Urine Color Yellow 09/26/21 22:52 Urine Appearance Clear (Clear) 09/26/21 22:52 Urine pH 7.5 (4.5-7.5) 09/26/21 22:52 Ur Specific [place] 1.011 (1.000-1.030) 09/26/21 22:52 Urine Protein Negative (Negative) 09/26/21 22:52 Urine Glucose (UA) Negative (Negative) 09/26/21 22:52 Urine Ketones Trace (Negative) H 09/26/21 22:52 Urine Blood 1+ (Negative) H 09/26/21 22:52 Urine Nitrite Negative (Negative) 09/26/21 22:52 Urine Bilirubin Negative (Negative) 09/26/21 22:52 Urine Urobilinogen Negative (Negative) 09/26/21 22:52 Ur Leukocyte Esterase Negative (Negative) 09/26/21 22:52 Urine WBC (Auto) 1-5 /hpf (0-5) 09/26/21 22:52 Urine RBC (Auto) 0-4 /hpf (0-4) 09/26/21 22:52 U Hyaline Cast (Auto) 0 /lpf (0-5) 09/26/21 22:52 U Epithel Cells (Auto) 0-5 /lpf (0-5) 09/26/21 22:52 Urine Bacteria (Auto) Negative (Negative) 09/26/21 22:[address] abdomen pelvis initial read: Lung bases are clear. Normal cardiac size. Normal liver. Status post cholecys tectomyotherwise unremarkable biliarysystem. Normal spleen, bilateral adrenal glands and bilateral kidneys. Normal pancreas. Postoperative changeswith sutures along the stomach. Nonspecific small bowel. Diverticulosis throughout the colon with no signs of diverticulitis. Normal appendix. Fluid within the right colon with mild distention of the distal small bowel loops and fluid within the lumen, a combination of findings suggestive of malabsorption versus enteritis. Anteverted uteruswith IUD in place. Normal urinarybladder. No free fluid. Mild degenerative disease of the spine. Normal aorta. Mild fullness of the mesenteric lymph nodes most likelyconsistent with nonspecific inflammatory response.
[2021-09-27] MEDS ORDERED: LACTATED RINGER'S 1,000 ML IV STA (04:33)
[2021-09-27 04:41] LABS: Influenza A virus by PCR Negative (Neg); Influenza B virus by PCR Negative (Neg); RSV by PCR Negative (Neg); SARS CoV2 RNA(COVID-19) InHosp NEGATIVE (Negative)
[2021-09-27 04:47] LABS: Adenovirus F 40/41 PCR Not Detected (NotDetected); Astrovirus PCR Not Detected (NotDetected); Clostridium diff Toxin A/B PCR Not Detected (NotDetected); Cryptosporidium PCR Not Detected (NotDetected); Cyclospora cayetanensis PCR Not Detected (NotDetected); Entamoeba histolytica PCR Not Detected (NotDetected); Enteroaggregative E.coli(EAEC) Not Detected (NotDetected); Enteropathogenic E.coli (EPEC) Not Detected (NotDetected); Enterotoxigenic E.coli (ETEC) Not Detected (NotDetected); Giardia lamblia PCR Not Detected (NotDetected); Norovirus GI/GII PCR Not Detected (NotDetected); Plesiomonas shigelloides PCR Not Detected (NotDetected); Rotavirus A PCR Not Detected (NotDetected); Salmonella PCR Not Detected (NotDetected); Sapovirus PCR Not Detected (NotDetected); Shiga-like Toxin E.coli (STEC) Not Detected (NotDetected); Shigella/Enteroinvasive E.coli Not Detected (NotDetected); Vibrio cholerae PCR Not Detected (NotDetected); Vibrio species PCR Not Detected (NotDetected); Yersinia enterocolitica PCR Not Detected (NotDetected)
[2021-09-27 04:50] LABS: Campylobacter PCR DETECTED (NotDetected)
[2021-09-27] MEDS ORDERED: POTASSIUM CHLORIDE PWD 20 MEQ PACK PO STA (05:01)
[2021-09-27] MEDS ORDERED: LORATADINE 10 MG TAB PO STA (05:20)
[2021-09-27] MEDS ORDERED: MAGNESIUM SULFATE / D5W 1 GM/100 ML BAG IV STA (05:22)
[2021-09-27] MEDS ORDERED: ACETAMINOPHEN 325 MG TAB PO PRN (05:35)
[2021-09-27] MEDS ORDERED: LORazepam 2 MG/1 ML VIAL IV PRN (05:35)
[2021-09-27] MEDS ORDERED: diphenhydrAMINE 50 MG/ML VIAL IV PRN (05:35)
[2021-09-27] MEDS: KETOROLAC TROMETHAMINE 15 MG/ML VIAL IV PRN ×2 (06:44→15:18)
[2021-09-27] MEDS ORDERED: ALPRAZolam 0.5 MG TABLET PO PRN (06:46)
[2021-09-27] MEDS ORDERED: ZOLPIDEM TARTRATE 10 MG TAB PO PRN (06:47)
--- NOTE | 2021-09-27 07:29 | CT Scan Report ---
CT SCAN OF THE ABDOMEN AND PELVIS WITHOUT IV CONTRAST CLINICAL HISTORY: Left-sided abdominal pain. COMPARISON STUDY: Abdominal CT dated 01/06/2020. TECHNIQUE: CT scan of the abdomen and pelvis is performed from the lung bases to the proximal femora. Images are reviewed in the axial, sagittal, and coronal planes. IV contrast was not administered for this examination due to a reported history of contrast allergy. A dose lowering technique was utiliz ed adhering to the principles of ALARA. CT DOSE: 444.45 mGy.cm FINDINGS: Lung bases: The heart is normal in size and without pericardial effusion. The lung bases are clear. Liver: The unenhanced liver is normal in size, contour, and attenuation. There is no intrahepatic maximilian iary ductal dilatation. Gallbladder: Surgically absent noting clips in the gallbladder fossa. Spleen: Normal in size and attenuation. Pancreas: Unremarkable. Adrenal glands: Unremarkable. Kidneys: The unenhanced kidneys are normal in size and without hydronephrosis. There are no renal kacie culi identified. There is no evidence of contour deforming renal mass lesion. Abdominal vasculature: The abdominal aorta is normal in course and caliber. Stomach and bowel: Postoperative changes consistent with a history of Gallito-en-Y gastric bypass surger y. No bowel obstruction is identified. There is mild colonic diverticulosis without CT evidence of ac julia diverticulitis. Mild fecal retention is seen throughout the colon. The appendix is well-visualiz ed and normal. Peritoneum: There is no intraperitoneal free air or abdominal ascites. Lymphadenopathy: None. Pelvic viscera: The bladder, uterus, and adnexa are normal as visualized noting an intrauterine devic e in place. Skeletal structures: The skeletal structures appear osteopenic. No lytic or blastic lesions are seen. IMPRESSION: 1. No acute infectious or inflammatory findings are identified in the abdomen or pelvis. 2. Status post Gallito-en-Y gastric bypass surgery. No bowel obstruction is seen. 3. Mild colonic diverticulosis without CT evidence of acute diverticulitis. 4. Additional findings as above. ACT 112: Negative or not required by law. Electronically signed by: Renato Chirinos M.D. 09/27/2021 7:27 AM
[2021-09-27] MEDS ORDERED: POTASSIUM CHLORIDE PWD 20 MEQ PACK PO ONE (08:00)
[2021-09-27] MEDS: LEVOTHYROXINE SODIUM 125 MCG TABLET PO SCH (08:54)
[2021-09-27] MEDS: MULTIVITAMIN CHEWABLE TAB PO SCH ×2 (08:54→21:12)
[2021-09-27] MEDS: SERTRALINE HCL 100 MG TABLET PO SCH (08:54)
[2021-09-27] MEDS: ENOXAPARIN INJ 40 MG/0.4 ML SYR SQ SCH (08:58)
[2021-09-27] MEDS ORDERED: D5NSS + 20MEQ KCL 20 MEQ/1,000 ML BAG IV SCH (09:45)
[2021-09-27] MEDS: PROMETHAZINE HCL 12.5 MG in SODIUM CHLORIDE 0.9% 50 ML IV PRN ×2 (09:52→21:10)
[2021-09-27 10:19] LABS: Hematocrit (blood only) 40.7 % (37-47); Hemoglobin 13.8 g/dL (12.0-16.0); Mean Corpuscular Hemoglobin 29.9 pg (25-34); Mean Corpuscular Hgb Conc 33.9 g/dL (32-36); Mean Corpuscular Volume 88.1 fL (80-100); Mean Platelet Volume 10.2 fL (7.4-10.4); Platelet Count 217 K/uL (130-400); RDW Coefficient of Variation 13.8 % (11.5-14.5); RDW Standard Deviation 44.5 fL (36.4-46.3); Red Blood Count 4.62 M/uL (4.2-5.4)
[2021-09-27] MEDS ORDERED: ACETAMINOPHEN 1000 MG/100 ML IV IV PRN (10:26)
[2021-09-27 10:55] LABS: BUN Creatinine Ratio 15.2 (10-20); Creatinine Clr Calc Pharmacy 100.9 ml/min; Est GFR (African American) 121.9 ml/min; Est GFR (Non-African American) 105.2 ml/min; Magnesium 2.2 mg/dl (1.7-2.4); Potassium 4.2 mmol/L (3.5-5.1)
[2021-09-27] MEDS: MoRPHine SULFATE 2 MG/ML CARP IV PRN ×2 (11:13→17:56)
[2021-09-27] MEDS: LOPERAMIDE HCL 2 MG CAP PO PRN ×2 (16:38→17:56)
--- NOTE | 2021-09-27 17:28 | Hospitalist Progress Note ---
Date of Service September 27, 2021 Assessment & Plan (1) Campylobacter enteritis: Plan: -will start azithromycin 500mg IV x 3 days -supportive management otherwise -imodium PRN -zofran PRN -Acetaminophen and morphine PRN for pain (2) Hypokalemia: Plan: -repleted and resolved -after this NSs + 20mEQ 1L finishes, will switch over to NSS at 100cc/hr Plan: DVT ppx SQ lovenox Admission and Anticipated Discharge Date Admission Date: September 27, 2021 Subjective Ongoing watery diarrhea. Patient feels terrible Nauseous, vomiting earlier. Poor appetite Physical Exam Physical Exam: Appears tired, non toxic, pleasant Respiratory: breathing comfortably on room air, no wheezing/rhonchi/rales Cardiovascular: regular rate and rhythm, no murmurs/rubs/gallops Gastrointestinal (Abdomen): Hyperactive, soft, non tender Musculoskeletal: no edema Neurologic: awake, alert, spontaneously moving extremities Results & Data Results & Data ([facility]) Vital Signs (Past 12 Hours) Vital Signs Temp Pulse Resp BP Pulse Ox 09/27/21 14:07 36.7 C 76 16 96/62 L 97 09/27/21 07:18 36.6 C 88 16 102/67 99 09/27/21 06:28 36.6 C 98 H 18 105/67 99 Laboratory Results Short CBC 09/26/21 09/27/21 Range/Units 22:52 09:59 WBC 17.96 H 13.50 H (4.8-10.8) K/uL Hgb 14.3 13.8 (12.0-16.0) g/dL Hct 42.1 40.7 (37-47) % Plt Count 235 217 (130-400) K/uL BMP 09/26/21 09/27/21 22:52 09:59 Sodium 137 136 Potassium 3.0 L 4.2 D Chloride 105 109 H Carbon Dioxide 23 21 BUN 13 10 Creatinine 0.76 0.66 Glucose 107 H 99 Calcium 8.8 9.0 Liver Function 09/26/21 Range/Units 22:52 Total Bilirubin 0.9 (0.2-1.0) mg/dl AST 15 (13-39) U/L ALT 12 (7-52) U/L Alkaline Phosphatase 122 H (34-104) U/L Albumin 4.0 (3.4-5.0) gm/dl Urine 09/26/21 Range/Units 22:52 Urine Color Yellow Urine Appearance Clear (Clear) Urine pH 7.5 (4.5-7.5) Ur Specific [place] 1.011 (1.000-1.030) Urine Protein Negative (Negative) Urine Glucose (UA) Negative (Negative) Medications Administered Current Inpatient Medications Acetaminophen (Acetaminophen 500 Mg Tab) 1,000 mg PO Q8H PRN PRN Reason: Pain Stop: 10/27/21 10:34 Alprazolam (Alprazolam 0.5 Mg Tablet) 0.5 mg PO DAILY PRN PRN Reason: Anxiety Stop: 10/27/21 06:45 Diphenhydramine HCl (Diphenhydramine 50 Mg/Ml Vial) 12.5 mg IV Q4H PRN PRN Reason: Allergic Reaction Stop: 10/27/21 05:34 Enoxaparin Sodium (Enoxaparin Inj 40 Mg/0.4 Ml Syr) 40 mg SQ QAM SAMMY Stop: 10/27/21 08:59 Last Admin: 09/27/21 08:58 Dose: 40 mg Documented by: Gabapentin (Gabapentin 600 Mg Tab) 600 mg PO HS SAMMY Stop: 10/27/21 20:59 Promethazine HCl 12.5 mg/ (Sodium Chloride) 50.5 mls @ 202 mls/hr IV Q6H PRN PRN Reason: Nausea And Vomiting Stop: 10/27/21 05:34 Last Infusion: 09/27/21 10:53 Dose: Infused Documented by: Potassium Chloride/Dextrose/Sod Cl (D5nss + 20meq Kcl) 20 meq in 1,000 mls @ 100 mls/hr IV .Q10H [facility]; Protocol Stop: 09/27/21 19:44 Last Admin: 09/27/21 11:09 Dose: 100 mls/hr Documented by: Sodium Chloride (Nss 1000ml) 1,000 mls @ 100 mls/hr IV .Q10H [facility] Stop: 10/27/21 19:59 Azithromycin 500 mg/ Dextrose 255 mls @ 127.5 mls/hr IV Q24H SAMMY Stop: 09/30/21 17:23 Ketorolac Tromethamine (Ketorolac Tromethamine 15 Mg/Ml Vial) 15 mg IV Q6H PRN PRN Reason: Pain Stop: 10/02/21 05:34 Last Admin: 09/27/21 15:18 Dose: 15 mg Documented by: Levothyroxine Sodium (Levothyroxine Sodium 125 Mcg Tablet) 125 mcg PO DAILY [facility] Stop: 10/27/21 08:59 Last Admin: 09/27/21 08:54 Dose: 125 mcg Documented by: Loperamide HCl (Loperamide Hcl 2 Mg Cap) 2 mg PO Q4 PRN PRN Reason: Diarrhea Stop: 10/27/21 09:39 Last Admin: 09/27/21 16:38 Dose: 2 mg Documented by: Lorazepam (Lorazepam 2 Mg/1 Ml Vial) 0.5 mg IV Q4H PRN PRN Reason: Anxiety Stop: 10/27/21 05:34 Morphine Sulfate (Morphine Sulfate 2 Mg/Ml Carp) 2 mg IV Q4 PRN PRN Reason: Pain not relieved by PO med Stop: 10/11/21 10:26 Last Admin: 09/27/21 11:13 Dose: 2 mg Documented by: Multivitamins/Folic Acid/Vitamin C (Multivitamin Chewable Tab) 1 tab PO BID SAMMY Stop: 10/27/21 08:59 Last Admin: 09/27/21 08:54 Dose: 1 tab Documented by: Sertraline HCl (Sertraline Hcl 100 Mg Tablet) 100 mg PO QAM [facility] Stop: 10/27/21 08:59 Last Admin: 09/27/21 08:54 Dose: 100 mg Documented by: Zolpidem Tartrate (Zolpidem Tartrate 10 Mg Tab) 10 mg PO HS PRN PRN Reason: Sleep Stop: 10/27/21 06:46
[2021-09-27] MEDS: AZITHROMYCIN 500 MG in DEXTROSE 5% 250 ML IV SCH (17:57)
[2021-09-27] MEDS ORDERED: PNEUMOCOCCAL Polysaccharide Vaccine 25mcg/0.5mL vial/Syr IM ONE (19:45)
[2021-09-27] MEDS: GABAPENTIN 600 MG TAB PO SCH (20:08)
[2021-09-27] MEDS: SODIUM CHLORIDE 0.9% 1000ML 1,000 ML IV SCH (21:12)
[2021-09-28] MEDS: MoRPHine SULFATE 2 MG/ML CARP IV PRN ×2 (00:10→21:49)
[2021-09-28] MEDS: ACETAMINOPHEN 500 MG TAB PO PRN ×2 (00:48→14:50)
[2021-09-28] MEDS: LOPERAMIDE HCL 2 MG CAP PO PRN ×3 (06:02→21:46)
[2021-09-28] MEDS: KETOROLAC TROMETHAMINE 15 MG/ML VIAL IV PRN ×3 (06:02→18:16)
[2021-09-28] MEDS: SODIUM CHLORIDE 0.9% 1000ML 1,000 ML IV SCH ×2 (06:02→17:38)
[2021-09-28 06:57] LABS: BUN Creatinine Ratio 11.3 (10-20); Creatinine Clr Calc Pharmacy 107.4 ml/min; Est GFR (African American) 124.5 ml/min; Est GFR (Non-African American) 107.4 ml/min; Magnesium 1.8 mg/dl (1.7-2.4); Phosphorus 3.2 mg/dl (2.5-4.9); Potassium 3.6 mmol/L (3.5-5.1)
[2021-09-28 07:14] LABS: Hemoglobin 11.6 g/dL (12.0-16.0); Mean Corpuscular Hemoglobin 29.7 pg (25-34); Mean Corpuscular Hgb Conc 33.1 g/dL (32-36); Mean Corpuscular Volume 89.7 fL (80-100); Mean Platelet Volume 10.3 fL (7.4-10.4); Platelet Count 185 K/uL (130-400); RDW Coefficient of Variation 14.1 % (11.5-14.5); RDW Standard Deviation 46.2 fL (36.4-46.3); White Blood Count 7.41 K/uL (4.8-10.8)
[2021-09-28] MEDS: SERTRALINE HCL 100 MG TABLET PO SCH (08:26)
[2021-09-28] MEDS: MULTIVITAMIN CHEWABLE TAB PO SCH ×2 (08:26→20:57)
[2021-09-28] MEDS: LEVOTHYROXINE SODIUM 125 MCG TABLET PO SCH (08:26)
[2021-09-28] MEDS: ENOXAPARIN INJ 40 MG/0.4 ML SYR SQ SCH (08:26)
--- NOTE | 2021-09-28 10:09 | Hospitalist Progress Note ---
Date of Service September 28, 2021 Assessment & Plan (1) Campylobacter enteritis: Plan: -azithromycin 500mg IV x 3 days -supportive management otherwise -imodium PRN -zofran PRN -Acetaminophen and morphine PRN for pain -continue NSS At 100 cc/hr (2) Hypokalemia: Plan: -repleted and resolved Plan: DVT ppx SQ lovenox Admission and Anticipated Discharge Date Admission Date: September 27, 2021 Subjective Feels slightly better. Still with watery diarrhea but frequency slightly diminished (so far this morning 5 episodes compared to yesterday being on toilet for 3 hours) Ate a little bit of her breakfast Physical Exam Physical Exam: Well nourished, no acute distress, pleasant Respiratory: breathing comfortably on room air, no wheezing/rhonchi/rales Cardiovascular: regular rate and rhythm, no murmurs/rubs/gallops Gastrointestinal (Abdomen): soft, non tender, non distended Musculoskeletal: no edema Neurologic: awake, alert, spontaneously moving extremities Results & Data Results & Data ([facility]) Vital Signs (Past 12 Hours) Vital Signs Temp Pulse Resp BP Pulse Ox 09/28/21 07:16 36.7 C 67 16 103/71 97 09/28/21 00:35 38.0 C H 101 H 16 128/82 98 Laboratory Results Short CBC 09/27/21 09/28/21 Range/Units 09:59 05:41 WBC 13.50 H 7.41 (4.8-10.8) K/uL Hgb 13.8 11.6 L (12.0-16.0) g/dL Hct 40.7 35.0 L (37-47) % Plt Count 217 185 (130-400) K/uL BMP 09/27/21 09/28/21 09:59 05:41 Sodium 136 137 Potassium 4.2 D 3.6 Chloride 109 H 111 H Carbon Dioxide 21 21 BUN 10 7 Creatinine 0.66 0.62 Glucose 99 86 Calcium 9.0 8.0 L Medications Administered Current Inpatient Medications Acetaminophen (Acetaminophen 500 Mg Tab) 1,000 mg PO Q8H PRN PRN Reason: Pain Stop: 10/27/21 10:34 Last Admin: 09/28/21 00:48 Dose: 1,000 mg Documented by: Alprazolam (Alprazolam 0.5 Mg Tablet) 0.5 mg PO DAILY PRN PRN Reason: Anxiety Stop: 10/27/21 06:45 Diphenhydramine HCl (Diphenhydramine 50 Mg/Ml Vial) 12.5 mg IV Q4H PRN PRN Reason: Allergic Reaction Stop: 10/27/21 05:34 Enoxaparin Sodium (Enoxaparin Inj 40 Mg/0.4 Ml Syr) 40 mg SQ QAM SAMMY Stop: 10/27/21 08:59 Last Admin: 09/28/21 08:26 Dose: 40 mg Documented by: Gabapentin (Gabapentin 600 Mg Tab) 600 mg PO HS SAMMY Stop: 10/27/21 20:59 Last Admin: 09/27/21 20:08 Dose: 600 mg Documented by: Promethazine HCl 12.5 mg/ (Sodium Chloride) 50.5 mls @ 202 mls/hr IV Q6H PRN PRN Reason: Nausea And Vomiting Stop: 10/27/21 05:34 Last Infusion: 09/27/21 22:07 Dose: Infused Documented by: Sodium Chloride (Nss 1000ml) 1,000 mls @ 100 mls/hr IV .Q10H SAMMY Stop: 10/27/21 19:59 Last Admin: 09/28/21 06:02 Dose: 100 mls/hr Documented by: Azithromycin 500 mg/ Dextrose 255 mls @ 127.5 mls/hr IV Q24H SAMMY Stop: 09/30/21 17:59 Last Infusion: 09/27/21 22:07 Dose: Infused Documented by: Ketorolac Tromethamine (Ketorolac Tromethamine 15 Mg/Ml Vial) 15 mg IV Q6H PRN PRN Reason: Pain Stop: 10/02/21 05:34 Last Admin: 09/28/21 06:02 Dose: 15 mg Documented by: Levothyroxine Sodium (Levothyroxine Sodium 125 Mcg Tablet) 125 mcg PO DAILY SAMMY Stop: 10/27/21 08:59 Last Admin: 09/28/21 08:26 Dose: 125 mcg Documented by: Loperamide HCl (Loperamide Hcl 2 Mg Cap) 2 mg PO Q4 PRN PRN Reason: Diarrhea Stop: 10/27/21 09:39 Last Admin: 09/28/21 06:02 Dose: 2 mg Documented by: Lorazepam (Lorazepam 2 Mg/1 Ml Vial) 0.5 mg IV Q4H PRN PRN Reason: Anxiety Stop: 10/27/21 05:34 Morphine Sulfate (Morphine Sulfate 2 Mg/Ml Carp) 2 mg IV Q4 PRN PRN Reason: Pain not relieved by PO med Stop: 10/11/21 10:26 Last Admin: 09/28/21 00:10 Dose: 2 mg Documented by: Multivitamins/Folic Acid/Vitamin C (Multivitamin Chewable Tab) 1 tab PO BID SAMMY Stop: 10/27/21 08:59 Last Admin: 09/28/21 08:26 Dose: 1 tab Documented by: Sertraline HCl (Sertraline Hcl 100 Mg Tablet) 100 mg PO QAM SAMMY Stop: 10/27/21 08:59 Last Admin: 09/28/21 08:26 Dose: 100 mg Documented by: Zolpidem Tartrate (Zolpidem Tartrate 10 Mg Tab) 10 mg PO HS PRN PRN Reason: Sleep Stop: 10/27/21 06:46
[2021-09-28] MEDS: PROMETHAZINE HCL 12.5 MG in SODIUM CHLORIDE 0.9% 50 ML IV PRN (11:14)
[2021-09-28] MEDS: AZITHROMYCIN 500 MG in DEXTROSE 5% 250 ML IV SCH (17:26)
[2021-09-28] MEDS: GABAPENTIN 600 MG TAB PO SCH (20:57)
[2021-09-29] MEDS: SODIUM CHLORIDE 0.9% 1000ML 1,000 ML IV SCH (05:37)
[2021-09-29 07:23] LABS: BUN Creatinine Ratio 8.5 (10-20); Calcium 8.1 mg/dl (8.5-10.1); Creatinine Clr Calc Pharmacy 112.9 ml/min; Est GFR (African American) 126.5 ml/min; Est GFR (Non-African American) 109.1 ml/min; Magnesium 1.6 mg/dl (1.7-2.4); Phosphorus 3.1 mg/dl (2.5-4.9); Potassium 3.7 mmol/L (3.5-5.1)
[2021-09-29] MEDS: MULTIVITAMIN CHEWABLE TAB PO SCH (07:46)
[2021-09-29] MEDS: LEVOTHYROXINE SODIUM 125 MCG TABLET PO SCH (07:46)
[2021-09-29] MEDS: ENOXAPARIN INJ 40 MG/0.4 ML SYR SQ SCH (07:47)
[2021-09-29] MEDS: SERTRALINE HCL 100 MG TABLET PO SCH (07:47)
[2021-09-29] MEDS: MAGNESIUM SULFATE / D5W 1 GM/100 ML BAG IV SCH ×2 (10:50→13:15)
[2021-09-29] MEDS: KETOROLAC TROMETHAMINE 15 MG/ML VIAL IV PRN (11:48)
[2021-09-29] MEDS ORDERED: AZITHROMYCIN 250 MG TAB PO ONE (13:53)
--- NOTE | 2021-09-29 18:11 | Discharge Summary ---
Date of Service September 29, 2021 Admission HPI Per Admitting Provider History obtained from patient and records. Medical history significant fo for hypertension, hypothyroidism, fibromyalgia, hypothyroidism, history gastric bypass, anxiety/PTSD/mood disorder. Last confinement April 2014 for SBO resolved with conservative management. 6 days history of achy left-sided abdominal pain associated with watery loose stools, fever, chills, nausea/vomiting symptoms. Patient not sure about sick contacts because she works at the local [employer]. Patient also has consumed food from fast food restaurants. Antibiotic intake for sinusitis about 5 months ago. Patient denies chest pain, SOB. Achy headache symptoms from being sick. NSS, morphine, Zofran, simethicone, and IV Tylenol administered at the ER. At some point during stay at the ER, patient experienced a funny sensation over her face followed by left eyelid swelling and a possible rash behind her right ear. Patient denies chest pain, SOB. Symptoms improved after IV Benadryl administration at the ER. Medical History as above Colonoscopy 2019 showed sigmoid diverticulosis. Surgical History : Gastric bypass, dental surgery, liver biopsy, laparoscopic cholecystectomy, ankle surgery, section Family History : DM, heart disease, thyroid cancer Personal/Social history : Non-smoker, no EtOH intake, retired mental health worker Principal Diagnosis Campylobacter Diarrhea Hypokalemia Hypomagnesemia Sepsis Discharge Exam Feels better. Diarrhea volume and frequency has improved significantly. Stool is now partially formed. Tolerating diet. Ambulating around room. Patient does report intermittent abdominal cramping not relieved with tylenol and concerned about going home without pain medications in the event her cramps return. Constitutional Appears well Mucous membranes are moist Respiratory breathing comfortably on room air Gastrointestinal (Abdomen) soft Neurologic awake, alert, spontaneously moving extremities Psychiatric affect normal, maintains eye contact, reliable historian Discharge Data Allergies Allergy/AdvReac Type Severity Reaction Status Date / Time sumatriptan Allergy Intermediate BODY PAIN Unverified 02/12/16 12:27 iodine Allergy Unknown Unverified 02/12/16 12:25 Penicillins Allergy Unknown Verified 02/12/16 12:25 shellfish derived Allergy Unknown UNKNOWN Verified 02/12/16 12:25 Sulfa (Sulfonamide Allergy Unknown Unverified 02/12/16 12:25 Antibiotics) Consultations 09/27/21 04:01 ED Decision to Admit Stat Ordered Studies 09/26/21 23:17 CT abd pelvis wo con [facility] Hospital Course (1) Campylobacter enteritis: (2) Hypokalemia: Ms Sonny Angel is a 46 year old female with history of fibromyalgia, mood disorder and hypothyroidism presented to the ER on 09/27 with 1 week of severe watery diarrhea and abdominal cramping. She was found to have campylobacter enteritis as well as sepsis with leukocytosis and fever on presentation, hypokalemia, and hypomagnesemia. She received IV fluids, electrolyte repletion and imodium PRN. Given the duration of her symptoms, she was also started on azithromycin. With treatment, her diarrhea subsided and at the time of discharge her stool was partially formed. She has a poor appetite but is tolerating liquids without nausea/vomiting. She remained afebrile x 48 hours. She finished 3 days of azithromycin here. At the time of discharge, she felt much better and was comfortable returning home. She does report intermittent cramping not relieved with acetaminophen and for this she was advised to use a heating pad. She was also given a prescription for tramadol 50mg Q 8 PRN for severe cramping (disp 5 tablets) and cautioned to not drive/operate machinery while taking this medication. Total Time Total Time Spent Total Time Spent (In Minutes): 38 Discharge Plan Discharge Items Patient Disposition: Home - Self-Care Reason For Visit: ABD, DIARRHEA Discharge Diagnosis: Campylobacter Diarrhea Hypokalemia Hypomagnesemia Sepsis Condition on Discharge: Good Activity: Resume your previous activity Non-emergency contact: Primary Care Provider Call non-emergency contact if: you have any medication questions, your symptoms worsen and your pain is concerning for you Follow-up/Referrals: Leopoldo Osorio DO [Primary Care Provider] - Diet: Regular Addtl Attending Provider Instructions: Stay hydrated. Drink lots of fluids (gatorade or pedialyte is best). For your abdominal cramping, you can take acetaminophen (tylenol) up to 3gram a day. Use a heating pad. You received a prescription for Tramadol 50mg every 8 hours (5 tablets dispensed) for severe cramping not relieved with tylenol or other measures. Do not drive, take baths or operate heavy machinery while taking Tramadol since it may make you drowsy Pending Studies at Discharge: No Stand-Alone Forms: My [facility], Smoking Cessation Medications and DC Order Prescriptions: New loperamide 2 mg Capsule 2 mg PO Q4 PRN (Reason: loose stool) 14 Days Qty: 30 RF: 0 tramadol 50 mg tablet 50 mg PO Q8H PRN (Reason: pain) Qty: 5 RF: 0 Continued Rizatriptan Benzoate (Maxalt) 10 MG tablet 10 mg PO PRN PRN (Reason: Migraine Headache) Qty: 0 RF: 0 PEDIATRIC MULTIPLE VITAMIN W/ (FLINTSTONES CHEWABLE) 1 CHW CHW 1 tab PO DAILY Qty: 0 RF: 0 LEVOTHYROXINE SODIUM 125 MCG tablet 1 tab PO DAILY Qty: 0 RF: 0 ondansetron HCl 4 mg tablet 4 mg PO Q8H PRN (Reason: Nausea And Vomiting) RF: 0 sertraline 100 mg tablet 100 mg PO DAILY RF: 0 alprazolam 0.5 mg tablet 0.5 mg PO DAILY PRN (Reason: Anxiety) RF: 0 promethazine 25 mg tablet 25 mg PO Q6H PRN (Reason: Nausea And Vomiting) RF: 0 gabapentin 300 mg capsule 600 mg PO HS RF: 0 zolpidem 10 mg tablet 10 mg PO HS RF: 0 Caltrate + D3 Plus Minerals 200 mg PO BID RF: 0 Discharge Orders: Discharge Order (Routine); Ordered 09/29/21 Ordered By: Cristhian Hansen Admission Data Admit Date/Time: 09/28/21 17:18 Attending Provider: Cristhian Hansen Admit Provider: Kevin Amaro Primary Care Provider: Leopoldo Osorio Other Providers: Kevin Amaro Other Interventions: Discharge Summary Assessment (RN) Last Done: 09/29/21 13:58
== END 2021-09-29 14:53 | disposition home or self-care (01) | DRG 872 ==
LOC: ED 22:22 → 3W 22:22